=== PATIENT | male | born 1965 ===

== ENCOUNTER 2016-08-27 20:29 | Emergency (ER) | payer SELFPAY ==
[2016-08-27 20:29] VITALS: BMI 26.5
--- NOTE | 2016-08-27 21:13 | C.PDOC ---
History Of Present Illness Patient is a 51 y/o male that presents to the ED for evaluation of intermittent pain upon urination for the last week. Pt also complains of testicular and penile pain. Otherwise, denies any hematuria, urinary frequency/retention, abdominal pain, n/v/d, back pain, fever, chills, or any other associated symptoms at this time. Chief Complaint (Nursing): Male Genitourinary History Per: Patient History/Exam Limitations: no limitations Onset/Duration Of Symptoms: Days (1 week) Current Symptoms Are (Timing): Still Present Quality Of Discomfort: "Pain" Associated Symptoms: Urinary Symptoms. denies: Fever, Chills, Nausea, Vomiting , Diarrhea, Loss Of Appetite, Back Pain, Chest Pain, Constipation Alleviating Factors: None Recent travel outside of the [place]: No Additional History Per: Patient Past Medical History Reviewed: Historical Data, Nursing Documentation, Vital Signs Vital Signs: Last Vital Signs Temp 98.6 F 08/27/16 20:37 Pulse 88 08/27/16 22:48 Resp 20 08/27/16 22:48 BP 148/72 08/27/16 22:48 Pulse Ox 98 08/28/16 00:45 - Medical History PMH: HTN Denies: Diabetes, Hepatitis, HIV, Chronic Kidney Disease, Seizures, Sexually Transmitted Disease Family History: States: Unknown Family Hx - Social History Hx Tobacco Use: No Hx Alcohol Use: No Hx Substance Use: No - Immunization History Hx Tetanus Toxoid Vaccination: No Hx Influenza Vaccination: No Hx Pneumococcal Vaccination: No Review Of Systems Except As Marked, All Systems Reviewed And Found Negative. Constitutional: Negative for: Fever, Chills Gastrointestinal: Negative for: Nausea, Vomiting, Abdominal Pain, Diarrhea, Constipation Genitourinary: Positive for: Dysuria (pain on urination), Other (testicular pain ). Negative for: Frequency, Incontinence, Hematuria, Penile Discharge, Rash, Penile Pain Musculoskeletal: Negative for: Back Pain Physical Exam - Physical Exam Appears: Non-toxic, No Acute Distress Skin: Normal Color, Warm, Dry Head: Atraumatic, Normacephalic Eye(s): bilateral: Normal Inspection Neck: Normal ROM, Supple Chest: Symmetrical, No Tenderness Cardiovascular: Rhythm Regular, No Murmur Respiratory: Normal Breath Sounds, No Rales, No Rhonchi, No Wheezing Gastrointestinal/Abdominal: Soft, No Tenderness, No Guarding, No Rebound Male Genital: Normal Inspection, No Testicular Tenderness, No Testicular Swelling, No Inguinal Tenderness, No Inguinal Swelling, No Scrotal Swelling, No Other (no penile discharge, no swelling) Extremity: Normal ROM Extremity: Bilateral: Atraumatic Neurological/Psych: Oriented x3, Normal Speech, Normal Cognition ED Course And Treatment - Laboratory Results Result Diagrams: 08/27/16 21:24 08/27/16 21:24 O2 Sat by Pulse Oximetry: 98 (on RA) Pulse Ox Interpretation: Normal Progress Note: Blood work, urinalysis ordered and reviewed. Disposition Counseled Patient/Family Regarding: Diagnosis - Disposition Referrals: at [facility] [Outside] Disposition: HOME/ ROUTINE Disposition Time: 00:47 Condition: STABLE Prescriptions: Doxycycline Monohydrate 100 mg PO BID #20 tablet Naproxen [Naprosyn Tab] 375 mg PO TIDPC #20 tab Instructions: Nonspecific Urethritis in Men (ED) - POA Present On Arrival: None - Clinical Impression Clinical Impression: Urethritis, nonspecific - Scribe Statement The provider has reviewed the documentation as recorded by the Daniellaibrichard Kaminski All medical record entries made by the Daniellaibrichard were at my direction and personally dictated by me. I have reviewed the chart and agree that the record accurately reflects my personal performance of the history, physical exam, medical decision making, and the department course for this patient. I have also personally directed, reviewed, and agree with the discharge instructions and disposition.
[2016-08-27 21:33] LABS: BASO % 0.6 % (0.0-2.0); EOS # 0.2 K/uL (0.0-0.7); EOS % 3.6 % (0.0-4.0); HEMOGLOBIN 13.9 g/dL (12.0-18.0); LYMPH # 1.9 K/uL (1.0-4.3); LYMPH % 29.9 % (20.0-40.0); MEAN CELL VOLUME 84.2 fL (80.0-94.0); MEAN CORPUSCULAR HEMOGLOBIN 27.3 pg (27.0-31.0); MEAN CORPUSCULAR HGB CONC 32.5 g/dL (33.0-37.0); MEAN PLATELET VOLUME 9.1 fL (7.2-11.7); MONO # 0.6 K/uL (0.0-0.8); MONO % 9.7 % (0.0-10.0); NEUT # 3.5 K/uL (1.8-7.0); NEUT % 56.2 % (50.0-75.0); RBC 5.1 Mil/uL (4.40-5.90); RED CELL DISTRIBUTION WIDTH 13.4 % (11.5-14.5); WHITE BLOOD COUNT 6.3 K/uL (4.8-10.8)
[2016-08-27 21:43] LABS: ALB/GLOB RATIO 1.3 (1.0-2.1); ALT/SGPT 42 U/L (21-72); AST/SGOT 25 U/L (17-59); BLOOD UREA NITROGEN 26 mg/dL (9-20); CALCIUM 9.1 mg/dl (8.6-10.4); GFR AFRICAN-AMERICAN > 60; GFR NON-AFRICAN AMERICAN > 60
[2016-08-27] MEDS ORDERED: Sodium Chloride 0.9% 1,000 ML IV ONE (22:36)
[2016-08-27 23:02] LABS: URINE BACTERIA RARE (<OCC); URINE BILIRUBIN NEGATIVE (NEGATIVE); URINE BLOOD NEGATIVE (NEGATIVE); URINE CLARITY Clear (Clear); URINE COLOR Yellow (YELLOW); URINE GLUCOSE (UA) NORMAL (Normal); URINE LEUKOCYTE ESTERASE NEG Leu/uL (Negative); URINE NITRATE NEGATIVE (NEGATIVE); URINE PROTEIN NEGATIVE (NEGATIVE); URINE UROBILINOGEN NORMAL mg/dL (0.2-1.0)
[2016-08-28 01:35] VITALS: BP 132/76; PULSE 64; RESP 18; TEMP 98.1; O2SAT 99
== END 2016-08-28 01:33 | disposition home or self-care (01) ==
LOC: C.ER 20:29
DX: N34.1 Nonspecific urethritis (principal)
CPT/HCPCS: 80053; 81001; 85025; 87086; 99285; J7040

== ENCOUNTER 2016-10-14 15:41 | Emergency (ER) | payer OTHER ==
[2016-10-14 15:41] VITALS: BMI 26.5
[2016-10-14 15:47] VITALS: RESP 18
--- NOTE | 2016-10-14 16:14 | C.PDOC ---
History Of Present Illness 51 y/o male with Hx of HTN presents to ED sent from urgent center for elevated blood pressure. Patient states at urgent center blood pressure was high and was told to follow up with PMD but patient reports he does not have a PMD and came to ED for further evaluation. Patient admits to not being compliant with medications. Patient denies, headache, sob, chest pain, abdominal pain, nausea, vomiting, blurry or double vision. No other complaints at this time. Time Seen by Provider: 10/14/16 16:12 Chief Complaint (Nursing): High Blood Pressure History Per: Patient History/Exam Limitations: no limitations Onset/Duration Of Symptoms: Hrs Current Symptoms Are (Timing): Still Present Quality Of Symptoms: Asymptomatic Past Medical History Reviewed: Historical Data, Nursing Documentation, Vital Signs Vital Signs: Last Vital Signs Temp 98.7 F 10/14/16 17:19 Pulse 62 10/14/16 17:19 Resp 18 10/14/16 17:19 BP 156/90 H 10/14/16 17:19 Pulse Ox 98 10/14/16 18:20 - Medical History PMH: HTN Family History: States: No Known Family Hx - Social History Hx Tobacco Use: No Hx Alcohol Use: No Hx Substance Use: No - Immunization History Hx Tetanus Toxoid Vaccination: No Hx Influenza Vaccination: No Hx Pneumococcal Vaccination: No Review Of Systems Except As Marked, All Systems Reviewed And Found Negative. Constitutional: Negative for: Fever, Chills Eyes: Negative for: Vision Change Cardiovascular: Negative for: Chest Pain Respiratory: Negative for: Shortness of Breath Gastrointestinal: Negative for: Nausea, Vomiting, Abdominal Pain Skin: Negative for: Rash Physical Exam - Physical Exam Appears: Well, Non-toxic, No Acute Distress Skin: Normal Color, Warm, Dry, No Rash Head: Atraumatic, Normacephalic Eye(s): bilateral: Normal Inspection Oral Mucosa: Moist Neck: Normal ROM, Supple Chest: Symmetrical Cardiovascular: Rhythm Regular, No Murmur Respiratory: Normal Breath Sounds, No Rales, No Rhonchi, No Wheezing Gastrointestinal/Abdominal: Soft, No Tenderness, No Guarding, No Rebound Neurological/Psych: Oriented x3, Normal Speech ED Course And Treatment O2 Sat by Pulse Oximetry: 98 (RA) Pulse Ox Interpretation: Normal Medical Decision Making Medical Decision Making: Patient was explained he needs to follow with a primary care physician and was discharged home with information on Senior Budget Analyst assistant construction superintendent and Clinic. Disposition - Disposition Referrals: [facility] [Outside] [facility] [Outside] Cole Jimenez MD [Staff Provider] - Disposition: HOME/ ROUTINE Disposition Time: 17:00 Condition: GOOD Additional Instructions: Thank you for letting us take care of you today. Your provider was Dr. Hughes. The emergency medical care you received today was directed at your acute symptoms. If you were prescribed any medication, please fill it and take as directed. It may take several days for your symptoms to resolve. Return to the Emergency Department if your symptoms worsen, do not improve, or if you have any other problems. Please contact your doctor or call one of the physicians/clinics you have been referred to that are listed on the Patient Visit Information form that is included in your discharge packet. Bring any paperwork you were given at discharge with you along with any medications you are taking to your follow up visit. Our treatment cannot replace ongoing medical care by a primary care provider (PCP) outside of the emergency department. Thank you for allowing the [facility] team to be part of your care today. Follow up with Dr. Faisal Hunter or out clinic in 1-2 days for re-evaluation of your blood pressure and further management. Prescriptions: Hydrochlorothiazide [Microzide] 12.5 mg PO DAILY #7 cap Instructions: Hypertension (ED) Forms: [employer] (Bruneian) - Clinical Impression Clinical Impression: Hypertension - PA / MINERAL ECONOMIST / Resident Statement MD/DO has examined the patient and agrees with the treatment plan. - Scribe Statement The provider has reviewed the documentation as recorded by the Trevon Montes De Oca All medical record entries made by the Daniellaibrichard were at my direction and personally dictated by me. I have reviewed the chart and agree that the record accurately reflects my personal performance of the history, physical exam, medical decision making, and the department course for this patient. I have also personally directed, reviewed, and agree with the discharge instructions and disposition.
[2016-10-14 17:23] VITALS: BP 156/90; PULSE 62; TEMP 98.7
[2016-10-14 18:18] VITALS: O2SAT 98
== END 2016-10-14 17:20 | disposition home or self-care (01) ==
LOC: C.ER 15:41
DX: I10 Essential (primary) hypertension (principal)

== ENCOUNTER 2017-01-09 15:57 | Emergency (ER) | payer SELFPAY ==
[2017-01-09 16:05] VITALS: BMI 23.6
[2017-01-09 16:08] VITALS: PULSE 67; RESP 18; TEMP 97.8
[2017-01-09 18:35] LABS: BASO % 0.6 % (0.0-2.0); EOS # 0.2 K/uL (0.0-0.7); EOS % 3.1 % (0.0-4.0); HEMATOCRIT 44.4 % (35.0-51.0); LYMPH # 1.8 K/uL (1.0-4.3); LYMPH % 32.4 % (20.0-40.0); MEAN CELL VOLUME 85.6 fL (80.0-94.0); MEAN CORPUSCULAR HEMOGLOBIN 27.7 pg (27.0-31.0); MEAN CORPUSCULAR HGB CONC 32.4 g/dL (33.0-37.0); MEAN PLATELET VOLUME 9.6 fL (7.2-11.7); MONO # 0.7 K/uL (0.0-0.8); MONO % 12.5 % (0.0-10.0); NRBC % 0.2 % (0.0-2.0); RED CELL DISTRIBUTION WIDTH 14.1 % (11.5-14.5); WHITE BLOOD COUNT 5.6 K/uL (4.8-10.8)
[2017-01-09 18:46] LABS: ALB/GLOB RATIO 1.6 (1.0-2.1); ALKALINE PHOSPHATASE 49 U/L (38-126); ALT/SGPT 51 U/L (21-72); AST/SGOT 30 U/L (17-59); BILIRUBIN,TOTAL 0.9 mg/dL (0.2-1.3); BLOOD UREA NITROGEN 15 mg/dL (9-20); CALCIUM 8.1 mg/dl (8.6-10.4); CARBON DIOXIDE 27 mmol/L (22-30); CHLORIDE 98 mmol/L (98-107); GFR AFRICAN-AMERICAN > 60; GLUCOSE,RANDOM 69 mg/dL (75-110); POTASSIUM 3.7 mmol/L (3.6-5.2); SODIUM 134 mmol/L (132-148)
[2017-01-09 18:56] VITALS: BP 161/97; O2SAT 99
--- NOTE | 2017-01-09 19:24 | C.PDOC ---
History Of Present Illness 51 y/o male presents to the ED c/o digitally and positionally left chest discomfort. The patient also notes that "he ran out of hypertension medication many months ago". The patient denies fever, headaches, dizziness, shortness of breathe, and cough. Time Seen by Provider: 01/09/17 18:18 Chief Complaint (Nursing): Chest Pain History Per: Patient History/Exam Limitations: no limitations Onset/Duration Of Symptoms: Hrs Current Symptoms Are (Timing): Still Present Recent travel outside of the [place]: No Additional History Per: Patient Past Medical History Reviewed: Historical Data, Nursing Documentation, Vital Signs Vital Signs: Last Vital Signs Temp 97.8 F 01/09/17 16:07 Pulse 67 01/09/17 18:55 Resp 18 01/09/17 18:55 BP 161/97 H 01/09/17 18:55 Pulse Ox 99 01/09/17 20:15 - Medical History PMH: HTN Denies: Diabetes, Hepatitis, HIV, Chronic Kidney Disease, Seizures, Sexually Transmitted Disease Surgical History: No Surg Hx Family History: States: No Known Family Hx - Social History Hx Tobacco Use: No Hx Alcohol Use: No Hx Substance Use: No - Immunization History Hx Tetanus Toxoid Vaccination: No Hx Influenza Vaccination: No Hx Pneumococcal Vaccination: No Review Of Systems Except As Marked, All Systems Reviewed And Found Negative. Constitutional: Negative for: Fever, Chills Cardiovascular: Positive for: Chest Pain (left discomfort ) Respiratory: Negative for: Cough, Shortness of Breath Gastrointestinal: Negative for: Nausea, Vomiting Skin: Negative for: Rash, Bruising Physical Exam - Physical Exam Appears: Non-toxic, No Acute Distress Skin: Warm, Dry Head: Normacephalic Eye(s): bilateral: Normal Inspection Oral Mucosa: Moist Neck: Supple Chest: Other (physically positionly reproducible ,left laterally rib discomfort , and no rash) Cardiovascular: Rhythm Regular Respiratory: Normal Breath Sounds, No Decreased Breath Sounds, No Rales, No Rhonchi, No Wheezing Gastrointestinal/Abdominal: Soft, No Tenderness, No Guarding, No Rebound Extremity: Capillary Refill (2<sec.) Neurological/Psych: Oriented x3, Normal Speech, Normal Cognition Gait: Steady ED Course And Treatment - Laboratory Results Result Diagrams: 01/09/17 18:31 01/09/17 18:31 Lab Interpretation: Normal (trop neg.) ECG: Interpreted By Me ECG Rhythm: Sinus Rhythm, Nonspecific Changes (+LVH) ECG Interpretation: Normal Rate From EC O2 Sat by Pulse Oximetry: 99 (RA) - Radiology CXR: Interpreted by Me CXR Interpretation: Yes: No Acute Disease Progress Note: vasotec PO, Motrin PO Reevaluation Time: 19:23 Reassessment Condition: Improved Medical Decision Making Medical Decision Making: uncontrolled HTN off meds due to non-compliance (HCTZ 12.5) considering LVH on EKG, start ACEI and f/u in outpatient Clinic. Disposition Doctor Will See Patient In The: Office Counseled Patient/Family Regarding: Studies Performed, Diagnosis - Disposition Referrals: [facility] [Outside] [facility] Disposition: HOME/ ROUTINE Disposition Time: 19:24 Condition: GOOD Additional Instructions: sigue Vasotec 40 mg diario por andrea pression natalia. NUNCA debes faltar maryjo medicamentos- Sigue en la [facility]- para rellener maryjo medicamentos ailin necessario. [place] NO son cardiologico Sigue Ibuprofeno 400-600 mg cada 6 horas ailin necessario. Prescriptions: Enalapril Maleate [Vasotec] 40 mg PO DAILY #60 tab Instructions: Hypertension (ED) Forms: [employer] (Mexican) Print Language: ICELANDIC - Clinical Impression Clinical Impression: Chest discomfort, Hypertension - Scribe Statement The provider has reviewed the documentation as recorded by the Scribe Marisela Guaman All medical record entries made by the Scribe were at my direction and personally dictated by me. I have reviewed the chart and agree that the record accurately reflects my personal performance of the history, physical exam, medical decision making, and the department course for this patient. I have also personally directed, reviewed, and agree with the discharge instructions and disposition.
--- NOTE | 2017-01-10 12:02 | RAD ---
PROCEDURE: CHEST RADIOGRAPH, 1 VIEW HISTORY: SOB COMPARISON: Comparison chest 05/01/2015 FINDINGS: LUNGS: Biapical pleural thickening and adjacent apical parenchymal scarring PLEURA: As above. No evidence of pneumothorax CARDIOVASCULAR: Cardiomegaly. OSSEOUS STRUCTURES: No significant abnormalities. VISUALIZED UPPER ABDOMEN: Normal. OTHER FINDINGS: None. IMPRESSION: Biapical pleural thickening and adjacent apical parenchymal scarring within the
--- NOTE | 2017-01-12 09:03 | CARD ---
APPROVED REPORT EKG Measurement Heart [id number] OK 152P1 [id number] <Conclusion> Normal sinus rhythm Possible Left atrial enlargement Left ventricular hypertrophy Abnormal ECG
== END 2017-01-09 19:51 | disposition home or self-care (01) ==
LOC: C.ER 15:57
DX: R07.89 Other chest pain (principal); I10 Essential (primary) hypertension; Z91.14 Patient's other noncompliance with medication regimen

== ENCOUNTER 2017-03-28 19:00 | Emergency (ER) | payer SELFPAY ==
[2017-03-28 19:00] VITALS: BMI 23.6
[2017-03-28 19:06] VITALS: RESP 20; TEMP 98
--- NOTE | 2017-03-28 20:12 | C.PDOC ---
History Of Present Illness 52 year old male presents to the ED c/o low back pain after lifting a heavy water tank at work. Patient describes his pain as dull and achy mostly located in his lumbar region. Patient also noted to be hypertensive and patient states he has been non compliant with his medications. Patient denies saddle anesthesia , bowel or urine incontinence, visual changes, headache, dizziness, weakness, numbness. Time Seen by Provider: 03/28/17 20:11 Chief Complaint (Nursing): Back Pain History Per: Patient History/Exam Limitations: no limitations Onset/Duration Of Symptoms: Days Current Symptoms Are (Timing): Still Present Quality Of Discomfort: Dull, Aching Severity: Mild Pain Scale Rating Of: 2 Previous Symptoms: Back Pain Associated Symptoms: None Exacerbating Factor(s): Turning, Movement Recent travel outside of the [place]: No Additional History Per: Patient Past Medical History Reviewed: Historical Data, Nursing Documentation, Vital Signs Vital Signs: Last Vital Signs Temp 98.0 F 03/28/17 19:03 Pulse 49 L 03/28/17 23:05 Resp 20 03/28/17 22:20 BP 146/96 H 03/28/17 23:05 Pulse Ox 98 03/28/17 23:13 - Medical History PMH: HTN Denies: Diabetes, Hepatitis, HIV, Chronic Kidney Disease, Seizures, Sexually Transmitted Disease Surgical History: No Surg Hx Family History: States: No Known Family Hx - Social History Hx Tobacco Use: No Hx Alcohol Use: No Hx Substance Use: No - Immunization History Hx Tetanus Toxoid Vaccination: No Hx Influenza Vaccination: No Hx Pneumococcal Vaccination: No Review Of Systems Constitutional: Negative for: Fever, Chills Cardiovascular: Negative for: Chest Pain, Palpitations Respiratory: Negative for: Cough, Shortness of Breath Gastrointestinal: Negative for: Nausea, Vomiting, Abdominal Pain Genitourinary: Negative for: Incontinence Musculoskeletal: Positive for: Back Pain Skin: Negative for: Rash Neurological: Negative for: Weakness, Numbness, Headache, Dizziness Psych: Negative for: Anxiety Physical Exam - Physical Exam Appears: Non-toxic, No Acute Distress Skin: Warm, Dry Head: Normacephalic Eye(s): bilateral: Normal Inspection Nose: No Discharge, No Deformity Oral Mucosa: Moist Neck: Trachea Midline, Supple Chest: Symmetrical Cardiovascular: Rhythm Regular, No Murmur Respiratory: No Decreased Breath Sounds, No Rales, No Rhonchi, No Wheezing Gastrointestinal/Abdominal: Soft, No Tenderness, No Guarding, No Rebound Back: Normal Inspection, Straight Leg Raising (35 degrees), Other (Paralumbar tenderness L>R) Extremity: No Pedal Edema, No Calf Tenderness, No Swelling Extremity: Bilateral: Atraumatic Pulses: Left Dorsalis Pedis: Normal, Right Dorsalis Pedis: Normal Neurological/Psych: Oriented x3, Normal Motor, Normal Sensation Gait: Steady ED Course And Treatment - Laboratory Results Result Diagrams: 03/28/17 20:39 03/28/17 20:39 ECG: Interpreted By Me, Viewed By Me ECG Rhythm: Sinus Rhythm (59), Nonspecific Changes O2 Sat by Pulse Oximetry: 98 (On RA) Pulse Ox Interpretation: Normal Progress Note: Plan: -Labs. -EKG. -UA Reevaluation Time: 23:12 Reassessment Condition: Improved Medical Decision Making Medical Decision Making: Upon provider reevaluation patient is feeling better, is medically stable, and requires no further treatment in the ED at this time. Patient will be discharged home . Counseling was provided and all questions were answered regarding diagnosis and need for follow up with the referred clinic. There is agreement to discharge plan. Return if symptoms persist or worsen. Disposition Counseled Patient/Family Regarding: Studies Performed, Diagnosis, Need For Followup, Rx Given - Disposition Referrals: [facility] [Outside] [facility] [Outside] Disposition: HOME/ ROUTINE Disposition Time: 20:12 Condition: FAIR Additional Instructions: Please return if symptoms recur Prescriptions: Naproxen [Naprosyn] 1 tab PO BID PRN #25 tab PRN Reason: Pain Instructions: Hypertension (DC), Back Pain (ED), Back Exercises (ED) Forms: [employer] (Latvian) - Clinical Impression Clinical Impression: Low back strain, Hypertension - Scribe Statement The provider has reviewed the documentation as recorded by the Scribe Dylon Castro All medical record entries made by the Scribe were at my direction and personally dictated by me. I have reviewed the chart and agree that the record accurately reflects my personal performance of the history, physical exam, medical decision making, and the department course for this patient. I have also personally directed, reviewed, and agree with the discharge instructions and disposition.
[2017-03-28 20:42] LABS: BASO # 0.1 K/uL (0.0-0.2); BASO % 0.8 % (0.0-2.0); EOS # 0.1 K/uL (0.0-0.7); EOS % 1.9 % (0.0-4.0); HEMOGLOBIN 14.5 g/dL (12.0-18.0); LYMPH # 1.7 K/uL (1.0-4.3); MEAN CELL VOLUME 84.8 fL (80.0-94.0); MEAN CORPUSCULAR HEMOGLOBIN 28.4 pg (27.0-31.0); MEAN CORPUSCULAR HGB CONC 33.5 g/dL (33.0-37.0); MEAN PLATELET VOLUME 8.8 fL (7.2-11.7); MONO # 0.5 K/uL (0.0-0.8); NEUT # 3.7 K/uL (1.8-7.0); NEUT % 61.3 % (50.0-75.0); NRBC % 0.2 % (0.0-2.0); RBC 5.09 Mil/uL (4.40-5.90); RED CELL DISTRIBUTION WIDTH 13.8 % (11.5-14.5)
[2017-03-28 20:51] LABS: INR 1.2; PROTHROMBIN TIME 13.4 SECONDS (9.7-12.2)
[2017-03-28 20:57] LABS: ALB/GLOB RATIO 1.2 (1.0-2.1); ALBUMIN 4.2 g/dL (3.5-5.0); ALT/SGPT 43 U/L (21-72); AST/SGOT 28 U/L (17-59); BLOOD UREA NITROGEN 12 mg/dL (9-20); CALCIUM 8.7 mg/dl (8.6-10.4); GFR AFRICAN-AMERICAN > 60; GFR NON-AFRICAN AMERICAN > 60
[2017-03-28 21:22] LABS: URINE BILIRUBIN NEGATIVE (NEGATIVE); URINE BLOOD NEGATIVE (NEGATIVE); URINE CLARITY Clear (Clear); URINE COLOR Colorless (YELLOW); URINE GLUCOSE (UA) NORMAL (Normal); URINE LEUKOCYTE ESTERASE NEG Leu/uL (Negative); URINE NITRATE NEGATIVE (NEGATIVE); URINE PROTEIN NEGATIVE (NEGATIVE); URINE UROBILINOGEN NORMAL mg/dL (0.2-1.0)
[2017-03-28 22:20] VITALS: O2SAT 98
[2017-03-28] MEDS ORDERED: Enalaprilat 2.5 MG/2 ML IV ONE (22:27)
[2017-03-28] MEDS ORDERED: Enalaprilat 2.5 MG/2 ML ONE (22:29)
[2017-03-28 23:07] VITALS: BP 146/96; PULSE 49
--- NOTE | 2017-03-30 14:38 | CARD ---
APPROVED REPORT EKG Measurement Heart [id number] IN 164P5 [id number] <Conclusion> Sinus bradycardia Possible Left atrial enlargement Left ventricular hypertrophy Nonspecific T wave abnormality Abnormal ECG
== END 2017-03-28 23:30 | disposition home or self-care (01) ==
LOC: C.ER 19:00
DX: S39.012A Strain of muscle, fascia and tendon of lower back, initial encounter (principal); X50.0XXA Overexertion from strenuous movement or load, initial encounter; Y92.89 Other specified places as the place of occurrence of the external cause; Y99.0 Civilian activity done for income or pay; I10 Essential (primary) hypertension
CPT/HCPCS: 80053; 81001; 84484; 85025; 85610; 85730; 93005; 96374; 96375; 99284; J1885

== ENCOUNTER 2017-04-13 16:36 | Inpatient (IN) | payer OTHER ==
[2017-04-13 16:36] VITALS: BMI 23.6
--- NOTE | 2017-04-13 19:43 | C.PDOC ---
History Of Present Illness 52 year old patient presents to the emergency department with complaints of pain in his back and chest described as pressure, "stabbing and cutting from the inside". Patient reports that he was evaluated by a psychiatrist and was told to be surrounded by family; he has not followed up with the psychiatrist. Patient denies anxiety, depression, suicidal or homicidal ideation. He states that he also has trouble sleeping, due to the fact that he hears voices of the "devil speaking to him." Patient feels that the "devil is causing his symptoms. 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) History/Exam Limitations: language barrier (patient speaks latvian) Onset/Duration Of Symptoms: Waxing/Waning, Other (years) Current Symptoms Are (Timing): Still Present Associated Symptoms: denies: Anxiety, Depression, Suicidal Thoughts, Other ( homicidal ideation) Past Medical History Reviewed: Historical Data, Nursing Documentation, Vital Signs Vital Signs: Last Vital Signs Temp 98.7 F 04/13/17 16:55 Pulse 67 04/13/17 16:55 Resp 16 04/13/17 16:55 BP 207/117 H 04/13/17 16:55 Pulse Ox 97 04/13/17 21:44 - Medical History PMH: HTN Denies: Anxiety, Depression, Diabetes, Hepatitis, HIV, Chronic Kidney Disease , Seizures, Sexually Transmitted Disease Surgical History: No Surg Hx Family History: States: No Known Family Hx - Social History Hx Tobacco Use: No Hx Alcohol Use: No Hx Substance Use: No - Immunization History Hx Tetanus Toxoid Vaccination: No Hx Influenza Vaccination: No Hx Pneumococcal Vaccination: No Review Of Systems Except As Marked, All Systems Reviewed And Found Negative. Cardiovascular: Positive for: Chest Pain (described pressure and stabbing) Musculoskeletal: Positive for: Back Pain Psych: Positive for: Other (auditory and visual hallucination). Negative for: Anxiety, Depression, Suicidal ideation Physical Exam - Physical Exam Appears: Non-toxic Skin: Normal Color, Warm, Dry Head: Normacephalic Eye(s): bilateral: Normal Inspection Nose: Normal Neck: Supple Chest: Symmetrical Cardiovascular: Rhythm Regular Respiratory: Normal Breath Sounds Gastrointestinal/Abdominal: Normal Exam, Soft, No Tenderness Extremity: Normal ROM Neurological/Psych: Oriented x3, Normal Speech, Normal Cognition ED Course And Treatment - Laboratory Results Result Diagrams: 04/13/17 20:57 04/13/17 20:57 ECG: Interpreted By Me ECG Rhythm: Sinus Bradycardia ECG Interpretation: Normal Interpretation Of ECG: sinus roman,LVH by voltage Rate From EC O2 Sat by Pulse Oximetry: 97 (RA) Pulse Ox Interpretation: Normal Medical Decision Making Medical Decision Making: Plan: * EKG * Labs * Urinalysis * CXR Time: 2143 Labs reviewed and within normal limits. Time: 2355 EXAM: CT Head Without Intravenous Contrast CLINICAL HISTORY: 52 years old, male; Pain; Headache; Patient HX: 12-24-15; Additional info: Acute psychosis TECHNIQUE: Axial computed tomography images of the head/brain without intravenous contrast. All CT scans at this facility use one or more dose reduction techniques, viz.: automated exposure control; ma/kV adjustment per patient size (including targeted exams where dose is matched to indication; i.e. head); or iterative reconstruction technique. COMPARISON: CT - HEAD W/O CONTRAST 2015-05-01 03:05 FINDINGS: Brain: No intracranial hemorrhage. No mass. Few scattered foci of decreased attenuation within periventricular/subcortical white matter. No definite edema. Ventricles: No hydrocephalus. Bones/joints: No acute fracture. Soft tissues: Unremarkable. Sinuses: No acute sinusitis. Mastoid air cells: No mastoid effusion. Orbits: Unremarkable as visualized. IMPRESSION: 1. Nonspecific white matter changes. Acute infarction may be CT occult within first 24 hours. If a focal deficit persists, consider followup CT or MRI for further evaluation. Disposition - Disposition Forms: [employer] (Spanish) - Scribe Statement The provider has reviewed the documentation as recorded by the Scribe (Sahil Amaya) All medical record entries made by the Scribe were at my direction and personally dictated by me. I have reviewed the chart and agree that the record accurately reflects my personal performance of the history, physical exam, medical decision making, and the department course for this patient. I have also personally directed, reviewed, and agree with the discharge instructions and disposition.
[2017-04-13 21:00] LABS: BASO % 0.7 % (0.0-2.0); EOS # 0.2 K/uL (0.0-0.7); EOS % 2.9 % (0.0-4.0); HEMOGLOBIN 14.7 g/dL (12.0-18.0); LYMPH # 1.8 K/uL (1.0-4.3); LYMPH % 28.3 % (20.0-40.0); MEAN CELL VOLUME 85.2 fL (80.0-94.0); MEAN CORPUSCULAR HEMOGLOBIN 28.7 pg (27.0-31.0); MEAN CORPUSCULAR HGB CONC 33.7 g/dL (33.0-37.0); MEAN PLATELET VOLUME 8.9 fL (7.2-11.7); MONO # 0.7 K/uL (0.0-0.8); MONO % 10.9 % (0.0-10.0); NEUT # 3.6 K/uL (1.8-7.0); NEUT % 57.2 % (50.0-75.0); NRBC % 0.1 % (0.0-2.0); RBC 5.12 Mil/uL (4.40-5.90); RED CELL DISTRIBUTION WIDTH 13.9 % (11.5-14.5); WHITE BLOOD COUNT 6.3 K/uL (4.8-10.8)
[2017-04-13 21:06] LABS: SQUAMOUS EPITHIAL < 1 /hpf (0-5); URINE BACTERIA RARE (<OCC); URINE BILIRUBIN NEGATIVE (NEGATIVE); URINE BLOOD NEGATIVE (NEGATIVE); URINE CLARITY Clear (Clear); URINE COLOR Yellow (YELLOW); URINE GLUCOSE (UA) NORMAL (Normal); URINE LEUKOCYTE ESTERASE NEG Leu/uL (Negative); URINE NITRATE NEGATIVE (NEGATIVE); URINE PROTEIN NEGATIVE (NEGATIVE); URINE UROBILINOGEN NORMAL mg/dL (0.2-1.0)
[2017-04-13 21:13] LABS: ALB/GLOB RATIO 1.3 (1.0-2.1); ALBUMIN 4.3 g/dL (3.5-5.0); ALT/SGPT 43 U/L (21-72); AST/SGOT 24 U/L (17-59); BLOOD UREA NITROGEN 14 mg/dL (9-20); CALCIUM 8.7 mg/dl (8.6-10.4); GFR AFRICAN-AMERICAN > 60; GFR NON-AFRICAN AMERICAN > 60
[2017-04-13 21:17] LABS: BARBITURATES, UR NEGATIVE (NEGATIVE); BENZODIAZEPINES, UR NEGATIVE (NEGATIVE); OPIATES, UR NEGATIVE (NEGATIVE); PHENCYCLIDINE, UR NEGATIVE (NEGATIVE)
--- NOTE | 2017-04-13 23:56 | CT ---
EXAM: CT Head Without Intravenous Contrast CLINICAL HISTORY: 52 years old, male; Pain; Headache; Patient HX: 12-24-15; Additional info: Acute psychosis TECHNIQUE: Axial computed tomography images of the head/brain without intravenous contrast. All CT scans at this facility use one or more dose reduction techniques, viz.: automated exposure control; ma/kV adjustment per patient size (including targeted exams where dose is matched to indication; i.e. head); or iterative reconstruction technique. COMPARISON: CT - HEAD W/O CONTRAST 2015-05-01 03:05 FINDINGS: Brain: No intracranial hemorrhage. No mass. Few scattered foci of decreased attenuation within periventricular/subcortical white matter. No definite edema. Ventricles: No hydrocephalus. Bones/joints: No acute fracture. Soft tissues: Unremarkable. Sinuses: No acute sinusitis. Mastoid air cells: No mastoid effusion. Orbits: Unremarkable as visualized. IMPRESSION: 1. Nonspecific white matter changes. Acute infarction may be CT occult within first 24 hours. If a focal deficit persists, consider followup CT or MRI for further evaluation.
--- NOTE | 2017-04-14 09:04 | RAD ---
PROCEDURE: CHEST RADIOGRAPH, 1 VIEW HISTORY: Detox/Psy COMPARISON: 01/09/2017. FINDINGS: LUNGS: The lungs are well inflated and clear. PLEURA: No pneumothorax or pleural fluid seen. CARDIOVASCULAR: Normal. OSSEOUS STRUCTURES: No significant abnormalities. VISUALIZED UPPER ABDOMEN: Normal. OTHER FINDINGS: None. IMPRESSION: No active pulmonary disease.
--- NOTE | 2017-04-14 11:26 | PCM.BM ---
<Kika Martin - Last Filed: 04/14/17 11:22> Treatment Plan Problems - Problems identified on initial assessmt Auditory Hallucination Date Initiated: 04/14/17 Time Initiated: 11:22 Assessment reference: NA Status: Active Psychosis Date Initiated: 04/14/17 Time Initiated: 11:22 Assessment reference: NA Status: Active Treatment assets and liabiliti Patient Assests: adapts well, cooperative, resourceful, self-reliant, ADL independent, negotiates basic needs, cognitively intact Patient Liabilities: live alone (Lives with evangelical friend), financial problems, poor support system, substance abuse (None), medical problems (HTN) - Milieu Protocol Maintain good personal hygiene: daily Encourage regular showers, daily Remind patient to perform daily oral care, daily Assist patient to perform ADL's (Self) Conduct patient checks and document Observation sheet: Q15 minutes (Safety) Maintain personal safety: every shift Educate patient to report safety concerns to staff, every shift Monitor environment for contraband/sharps Medication safety: Monitor for expected outcome, potential side effects: every shift, Assess barriers to learning: every shift, Assess readiness for medication education: every shift <Harriet Day - Last Filed: 04/15/17 10:40> - Diagnosis (1) Schizophrenia, paranoid, chronic Status: Acute Interventions: 04/15/17 10:40 * Assess/adjust medications daily and /or as needed * See patient on an individual basis 7x/week to assess status of hallucinations * Discuss risks, benefits, side effects and alternatives of medications * <Cassidy Alexander - Last Filed: 04/15/17 10:45> Family Contact Family involvement: Family/SO is involved Family contact: Patient agrees to contact Family contact name: Janine Martin-daughter Family contacted how many times per week?: 1 - Goals for Treatment Patient goals for treatment: "I want to continue seeing a psychiatrist." Discharge/Continuing Care - Education Needs Education Needs: Patient Medication, Patient Coping Skills - Discharge Discharge Criteria: Tolerates medication w/o severe side effects, Reduction of target symptoms Discharge to:: Home - Treatment Team Participation Discussed with Family/SO: No Was Patient/Family/SO present at Treatment Team Meeting: Yes
--- NOTE | 2017-04-14 12:29 | PCM.PSYCH ---
Initial Psychiatric Evaluation - Initial Psychiatric Evaluation Type of Admission: Voluntary Legal Status: Capacity Chief Complaint (in patient's own words): I was hearing voices to kill myself.' History of Present Illness and Precipitating Events: The patient is a 52 y/o HM, who presented to ED for auditory and visual hallucinations. Patient appeared disorganized and internally preoccupied during the interview. He appeared paranoid and delusional during the interview. He reports of hearing demons' voices telling him to go to hell and that they are enemies of Bobby. As per the ED report, pt reported that he is being physically attacked by the voices. The patient is a [employer] of [employer] francia and attributes the voices as a part of his christianity francia. The patient has been hearing voices for the past 5 years, but the past year the voices have increasingly gotten worse. The patient has no previous psychiatric treatment or hospitalizations. The patient has no history of drug or alcohol abuse. Patient reports depressed mood and feelings of hopelessness and helplessness. Patient remained isolated, confined and withdrawn. He remained paranoid and delusional. PMH: HTN Current Medications: Active Medications Generic Name Dose Route Start Last Admin Trade Name Freq PRN Reason Stop Dose Admin Clonidine HCl 0.1 mg 04/14/17 11:37 04/14/17 12:05 Catapres PO 0.1 mg Q6 PRN Administration Other Pneumococcal Polyvalent Vaccine 0.5 ml 04/17/17 10:00 Pneumovax 23 Vaccine IM 04/17/17 10:01 .ONCE ONE Past Psychiatric History - Past Psychiatric History Previous Treatment History: None Pertinent Medical Hx (Current Medical&Sleep Prob, Allergies): Allergies Allergy/AdvReac Type Severity Reaction Status Date / Time No Known Allergies Allergy Verified 04/13/17 17:00 Naproxen [Naprosyn] 1 tab PO BID PRN #25 tab 03/28/17 Review of Systems - Review of Systems All systems: reviewed and no additional remarkable complaints except - Psychiatric Psychiatric: Anxiety, Auditory Hallucinations, Panic Attacks, Paranoia, Visual Hallucinations Mental Status Examination - Personal Presentation Personal Presentation: Looks stated age - Affect Affect: Constricted, Depressed - Motor Activity Motor Activity: Psychomotor Retardation - Reliability in Providing Information Reliability in Providing Information: Poor, due to alteration in thoughts, Poor , due to altered mood - Speech Speech: Disorganized - Mood Mood: Depressed, Anxious - Formal Thought Process Formal Thought Process: Hallucinations, Delusions, Paranoia, Loosening of associations - Hallucinations/Delusions Hallucinations: Visual, Auditory Delusions: Persecution - Obsessions/Compulsions Obsessions: No Compulsions: No - Cognitive Functions Orientation: Person, Place, Situation, Time Sensorium: Alert Attention/Concentration: Attentive Abstract Thinking: [place] Estimate of Intelligence: Below average Judgement: Imparied, as evidence by: Poor judgement, Imparied, as evidence by: Lack of insight into illness - Risk Risk: Diminished functioning - Limitations Limitations: Living alone DSM 5 DX - DSM 5 DSM 5 Diagnosis: Schizophrenia paranoid type continuous R/o Schizoaffective disorder bipolar type - Recommended/Plan of Treatment Treatment Recommendations and Plan of Treatment: Schizophrenia paranoid type continuous R/o Schizoaffective disorder bipolar type -CBT -Psychoeducation -Supportive therapy, group therapy, individual therapy -Haldol 5 mg by mouth twice a day -Celexa 20 mg PO Daily -Trazodone 50 mg by mouth daily at bedtime HTN: Continue prescribed medications - Smoking Cessation Smoking Cessation Initiated: No
--- NOTE | 2017-04-14 15:32 | CP.PCM.HP ---
<Ge Mcmanus - Last Filed: 04/14/17 18:29> History of Present Illness - History of Present Illness History of Present Illness: PGY1 H+P for Dr. Montoya Consulted for Hypertensive Urgency Patient is 52 year old male with a past medical history of HTN who is currently admitted to the [facility] [place]. He was admitted yesterday because he has been hearing voices. He states he has been hearing voices for the past 5 years but they have been getting worse. He has never been admitted to the hospital for psychiatry problems before. He is not currently on any psych medications. He denies any SI/HI. Patient states that he has had a history of HTN and only takes one medication but he does not remember the name of the medication. Patient complained of a sharp intermittent chest pain last night but stated that the pain has since passed. Patient has no complaints at this time, other than the voices in his head. Denies fevers, chills, nausea, vomiting, diarrhea, constipation, chest pain, abdominal pain, headache, blurry vision, numbness or tingling. PMH: HTN PSH: denies Family: Father - HTN Social: denies tobacco, alcohol or illicit drug use Allergies: NKDA Meds: 1 unknown medication for HTN: Patient states his pharmacy is [facility] in [place]? Present on Admission - Present on Admission Any Indicators Present on Admission: No Review of Systems - Review of Systems All systems: reviewed and no additional remarkable complaints except (as per HPI ) Past Patient History - Infectious Disease Hx of Infectious Diseases: None - Past Social History Smoking Status: Never Smoked - CARDIAC Hx Hypertension: Yes - PULMONARY Hx Tuberculosis: No - NEUROLOGICAL Hx Seizures: No - HEENT Hx HEENT Problems: No - RENAL Hx Chronic Kidney Disease: No - ENDOCRINE/METABOLIC Hx Endocrine Disorders: No - HEMATOLOGICAL/ONCOLOGICAL Hx Human Immunodeficiency Virus (HIV): No - INTEGUMENTARY Hx Dermatological Problems: No - MUSCULOSKELETAL/RHEUMATOLOGICAL Hx Musculoskeletal Disorders: No - GASTROINTESTINAL Hx Gastrointestinal Disorders: No - GENITOURINARY/GYNECOLOGICAL Hx Sexually Transmitted Disorders: No - PSYCHIATRIC Hx Substance Use: No - SURGICAL HISTORY Hx Surgeries: No - ANESTHESIA Hx Anesthesia: No Meds Allergies/Adverse Reactions: Allergies Allergy/AdvReac Type Severity Reaction Status Date / Time No Known Allergies Allergy Verified 04/13/17 17:00 Physical Exam - Constitutional Appears: Well, Non-toxic, No Acute Distress - Head Exam Head Exam: ATRAUMATIC, NORMOCEPHALIC - Eye Exam Eye Exam: EOMI, Normal appearance. absent: Scleral icterus - ENT Exam ENT Exam: Mucous Membranes Moist - Respiratory Exam Respiratory Exam: Clear to Auscultation Bilateral, NORMAL BREATHING PATTERN. absent: Accessory Muscle Use, Rales, Rhonchi, Wheezes, Respiratory Distress - Cardiovascular Exam Cardiovascular Exam: REGULAR RHYTHM, +S1, +S2. absent: JVD - GI/Abdominal Exam GI & Abdominal Exam: Normal Bowel Sounds, Soft. absent: Diminished Bowel Sounds , Distended, Firm, Guarding, Rigid, Tenderness - Extremities Exam Extremities exam: Positive for: pedal pulses present. Negative for: calf tenderness, pedal edema, tenderness - Neurological Exam Neurological exam: Alert, Oriented x3 - Psychiatric Exam Psychiatric exam: Normal Affect, Normal Mood - Skin Skin Exam: Dry, Warm Results - Vital Signs Recent Vital Signs: Last Vital Signs Temp 98.3 F 04/14/17 08:00 Pulse 52 L 04/14/17 11:19 Resp 17 04/14/17 12:13 BP 177/113 H 04/14/17 11:19 Pulse Ox 100 04/14/17 10:44 - Labs Result Diagrams: 04/13/17 20:57 04/13/17 20:57 Labs: Laboratory Results - last 24 hr 04/13/17 04/13/17 04/13/17 20:57 20:57 20:57 WBC 6.3 RBC 5.12 Hgb 14.7 Hct 43.6 MCV 85.2 MCH 28.7 MCHC 33.7 RDW 13.9 Plt Count 268 MPV 8.9 Neut % (Auto) 57.2 Lymph % (Auto) 28.3 Carver % (Auto) 10.9 H Eos % (Auto) 2.9 Baso % (Auto) 0.7 Neut # (Auto) 3.6 Lymph # (Auto) 1.8 Carver # (Auto) 0.7 Eos # (Auto) 0.2 Baso # (Auto) 0.0 Sodium 138 Potassium 3.9 Chloride 98 Carbon Dioxide 26 Anion Gap 19 BUN 14 Creatinine 0.9 Est GFR ( Amer) > 60 Est GFR (Non-Af Amer) > 60 Random Glucose 89 Calcium 8.7 Total Bilirubin 0.6 AST 24 ALT 43 Alkaline Phosphatase 60 Total Protein 7.6 Albumin 4.3 Globulin 3.4 Albumin/Globulin Ratio 1.3 Urine Color Yellow Urine Clarity Clear Urine pH 6.0 Ur Specific Bison 1.021 Urine Protein Negative Urine Glucose (UA) Normal Urine Ketones Negative Urine Blood Negative Urine Nitrate Negative Urine Bilirubin Negative Urine Urobilinogen Normal Ur Leukocyte Esterase Neg Urine WBC (Auto) 1 Urine RBC (Auto) 1 Ur Squamous Epith Cells < 1 Urine Bacteria Rare Urine Opiates Screen Urine Methadone Screen Ur Barbiturates Screen Ur Phencyclidine Scrn Ur Amphetamines Screen U Benzodiazepines Scrn U Oth Cocaine Metabols U Cannabinoids Screen Alcohol, Quantitative < 10 RPR 04/13/17 04/13/17 20:57 Unknown WBC RBC Hgb Hct MCV MCH MCHC RDW Plt Count MPV Neut % (Auto) Lymph % (Auto) Carver % (Auto) Eos % (Auto) Baso % (Auto) Neut # (Auto) Lymph # (Auto) Carver # (Auto) Eos # (Auto) Baso # (Auto) Sodium Potassium Chloride Carbon Dioxide Anion Gap BUN Creatinine Est GFR ( Amer) Est GFR (Non-Af Amer) Random Glucose Calcium Total Bilirubin AST ALT Alkaline Phosphatase Total Protein Albumin Globulin Albumin/Globulin Ratio Urine Color Urine Clarity Urine pH Ur Specific Bison Urine Protein Urine Glucose (UA) Urine Ketones Urine Blood Urine Nitrate Urine Bilirubin Urine Urobilinogen Ur Leukocyte Esterase Urine WBC (Auto) Urine RBC (Auto) Ur Squamous Epith Cells Urine Bacteria Urine Opiates Screen Negative Urine Methadone Screen Negative Ur Barbiturates Screen Negative Ur Phencyclidine Scrn Negative Ur Amphetamines Screen Negative U Benzodiazepines Scrn Negative U Oth Cocaine Metabols Negative U Cannabinoids Screen Negative Alcohol, Quantitative RPR Nonreactive Assessment & Plan - Assessment and Plan (Free Text) Plan: HTN Urgency Started on Amlodipine 10mg PO daily Started on HCTZ 12.5mg PO daily Clonidine 0.1mg PO q6h prn will continue to monitor Schizophrenia Management per primary team Benztropine 2mg PO q6h prn Benadryl 50mg PO q6h prn Haldol 5mg PO q8h prn Haldol 5mg PO BID Haldol 5mg IM q8h prn HCTZ 12.5mg PO daily Ativan 1mg PO q6h prn Trazodone 50mg PO HS prn Case discussed with Dr. Jan Carolina Yonathan PGY1 <Jaylan Montoya - Last Filed: 04/15/17 15:04> Results - Vital Signs Recent Vital Signs: Last Vital Signs Temp 98.2 F 04/15/17 06:13 Pulse 64 04/15/17 09:54 Resp 18 04/15/17 06:13 BP 117/80 04/15/17 09:54 Pulse Ox 100 04/14/17 10:44 - Labs Result Diagrams: 04/13/17 20:57 04/13/17 20:57 Attending/Attestation - Attestation I have personally seen and examined this patient.: Yes I have fully participated in the care of the patient.: Yes I have reviewed all pertinent clinical information: Yes Notes (Text): Patient was seen and examined No complain.He has history of hypertension. Discussed about importance of controlling blood pressure to prevent complication. Discussed with the resident. I agree with the resident's documentation of the assessment and the plan. 04/15/17 15:02
--- NOTE | 2017-04-15 07:04 | CP.PCM.PN ---
<Ge Mcmanus - Last Filed: 04/16/17 07:07> Subjective - Date & Time of Evaluation Date of Evaluation: 04/15/17 Time of Evaluation: 07:45 - Subjective Subjective: PGY1 Medicine Note for Dr. Montoya Patient seen and examined at bedside this morning. Patient was resting in his bed but states he did not sleep very well due to the voices. The patient reports that he has not had any headaches, blurred vision, double vision, lightheadedness, dizziness, nausea, vomiting, chest pain, palpitations, numbness or tingling. Patient has no complaints other than the voices in head at this time. Objective - Vital Signs/Intake and Output Vital Signs (last 24 hours): Temp Pulse Resp BP Pulse Ox 98.2 F 61 18 166/96 H 100 04/15/17 06:13 04/15/17 06:13 04/15/17 06:13 04/15/17 06:13 04/14/17 10:44 - Medications Medications: Current Medications Amlodipine Besylate (Norvasc) 10 mg PO DAILY [facility] Last Admin: 04/14/17 17:13 Dose: 10 mg Benztropine Mesylate (Cogentin) 2 mg PO Q6 PRN PRN Reason: Extra Pyramidal Symptoms Last Admin: 04/14/17 13:28 Dose: 2 mg Citalopram Hydrobromide (Celexa) 20 mg PO DAILY [facility] Clonidine HCl (Catapres) 0.1 mg PO Q6 PRN PRN Reason: Other Last Admin: 04/14/17 12:05 Dose: 0.1 mg Diphenhydramine HCl (Benadryl) 50 mg PO Q6 PRN PRN Reason: Extra Pyramidal Symptoms Haloperidol (Haldol) 5 mg PO Q8 PRN PRN Reason: Moderate Agitation Last Admin: 04/14/17 13:28 Dose: 5 mg Haloperidol (Haldol) 5 mg PO BID [facility] Last Admin: 04/14/17 17:13 Dose: 5 mg Haloperidol Lactate (Haldol) 5 mg IM Q8 PRN PRN Reason: Moderate Agitation Hydrochlorothiazide (Microzide) 12.5 mg PO DAILY [facility] Last Admin: 04/14/17 17:13 Dose: 12.5 mg Lorazepam (Ativan) 1 mg PO Q6 PRN PRN Reason: Anxiety Last Admin: 04/14/17 13:28 Dose: 1 mg Ondansetron HCl (Zofran Inj) 4 mg IVP Q6 PRN PRN Reason: Nausea/Vomiting Pneumococcal Polyvalent Vaccine (Pneumovax 23 Vaccine) 0.5 ml IM .ONCE ONE Stop: 04/17/17 10:01 Trazodone HCl (Desyrel) 50 mg PO HS PRN PRN Reason: Insomnia - Labs Labs: 04/13/17 20:57 04/13/17 20:57 - Constitutional Appears: Non-toxic, No Acute Distress - Head Exam Head Exam: ATRAUMATIC, NORMOCEPHALIC - Eye Exam Eye Exam: EOMI, Normal appearance - ENT Exam ENT Exam: Mucous Membranes Moist - Respiratory Exam Respiratory Exam: Clear to Ausculation Bilateral, NORMAL BREATHING PATTERN. absent: Accessory Muscle Use, Rales, Rhonchi, Wheezes, Respiratory Distress - Cardiovascular Exam Cardiovascular Exam: REGULAR RHYTHM, +S1, +S2 - GI/Abdominal Exam GI & Abdominal Exam: Soft, Normal Bowel Sounds. absent: Distended, Firm, Guarding, Rigid, Tenderness - Extremities Exam Extremities Exam: absent: Calf Tenderness, Pedal Edema - Neurological Exam Neurological Exam: Alert, Awake, Oriented x3 - Psychiatric Exam Psychiatric exam: Depressed (patient is upset that he is still hearing voices) - Skin Skin Exam: Dry, Warm Assessment and Plan - Assessment and Plan (Free Text) Plan: HTN Urgency Amlodipine 10mg PO daily HCTZ 12.5mg PO daily Clonidine 0.1mg PO q6h prn - given once for BP of 166/113 will continue to monitor Schizophrenia Management per primary team Benztropine 2mg PO q6h prn Benadryl 50mg PO q6h prn Haldol 5mg PO q8h prn Haldol 5mg PO BID Haldol 5mg IM q8h prn HCTZ 12.5mg PO daily Ativan 1mg PO q6h prn Trazodone 50mg PO HS prn Please continue current medication regiment for hypertension. Medicine team signing off. Please re-consult if needed. Case discussed with Dr. Jan Carolina Yonathan PGY1 <Jaylan Montoya - Last Filed: 04/18/17 11:34> Objective - Vital Signs/Intake and Output Vital Signs (last 24 hours): Temp Pulse Resp BP Pulse Ox 98.4 F 59 L 18 139/79 100 04/17/17 06:11 04/17/17 16:45 04/17/17 06:11 04/17/17 16:45 04/14/17 10:44 - Medications Medications: Current Medications Amlodipine Besylate (Norvasc) 10 mg PO DAILY [facility] Last Admin: 04/18/17 09:03 Dose: 10 mg Benztropine Mesylate (Cogentin) 2 mg PO Q6 PRN PRN Reason: Extra Pyramidal Symptoms Last Admin: 04/17/17 09:08 Dose: 2 mg Citalopram Hydrobromide (Celexa) 30 mg PO DAILY [facility] Last Admin: 04/18/17 09:03 Dose: 30 mg Clonidine HCl (Catapres) 0.1 mg PO Q6 PRN PRN Reason: Other Last Admin: 04/17/17 07:56 Dose: 0.1 mg Diphenhydramine HCl (Benadryl) 50 mg PO Q6 PRN PRN Reason: Extra Pyramidal Symptoms Haloperidol (Haldol) 5 mg PO Q8 PRN PRN Reason: Moderate Agitation Last Admin: 04/14/17 13:28 Dose: 5 mg Haloperidol (Haldol) 10 mg PO HS [facility] Last Admin: 04/17/17 21:46 Dose: 10 mg Haloperidol (Haldol) 5 mg PO DAILY [facility] Last Admin: 04/18/17 09:04 Dose: 5 mg Haloperidol Lactate (Haldol) 5 mg IM Q8 PRN PRN Reason: Moderate Agitation Hydrochlorothiazide (Microzide) 12.5 mg PO DAILY [facility] Last Admin: 04/18/17 09:04 Dose: 12.5 mg Lorazepam (Ativan) 1 mg PO Q6 PRN PRN Reason: Anxiety Last Admin: 04/17/17 07:55 Dose: 1 mg Ondansetron HCl (Zofran Inj) 4 mg IVP Q6 PRN PRN Reason: Nausea/Vomiting Trazodone HCl (Desyrel) 50 mg PO HS PRN PRN Reason: Insomnia - Labs Labs: 04/13/17 20:57 04/13/17 20:57 Attending/Attestation - Attestation I have personally seen and examined this patient.: Yes I have fully participated in the care of the patient.: Yes I have reviewed all pertinent clinical information, including history, physical exam and plan: Yes Notes (Text): Seen and examined Plan discussed with the patient I agree with the resident's documentation of the assessment and the plan
--- NOTE | 2017-04-15 09:54 | PCM.PYCHPN ---
Psychiatric Progress Note - Psychiatric Progress Note Patient seen today, length of contact: 15 min Patient Chief Complaint: I was hearing voices to kill myself.' Problems Identified/Issues Discussed: Patient seen and evaluated, chart reviewed and discussed with the nurse. Patient remained disorganized and internally preoccupied. He still reports of hearing voices. Patient still appears paranoid and delusional. He reports depressed mood and feelings of hopelessness and helplessness. Patient remained isolated, confined and withdrawn. Patient is compliant with medications and denies any side effects. Symptoms are improving but need more time to stabilize. Support and psychoeducation given. Medication Change: Yes Medical Record Reviewed: Yes Mental Status Examination - Cognitive Function Orientation: Person, Place, Situation, Time Memory: Intact Attention: WNL Concentration: Poor Association: Loose Fund of Knowledge: WNL - Mood Mood: Depressed, Anxious - Affect Affect: Constricted, Depressed - Speech Speech: Soft - Formal Thought Process Formal Thought Process: Hallucinations, Delusions, Paranoia, Loosening of associations - Suicidal Ideation Suicidal Ideation: No - Homicidal Ideation Homicidal Ideation: No Goal/Treatment Plan - Goal/Treatment Plan Need for Continued Stay: Severe depression anxiety, Severe functional impairment Progress Toward Problem(s) and Goals/Treatment Plan: Schizophrenia paranoid type continuous R/o Schizoaffective disorder bipolar type -CBT -Psychoeducation -Supportive therapy, group therapy, individual therapy -Haldol 5 mg by mouth twice a day -Celexa 20 mg PO Daily -Trazodone 50 mg by mouth daily at bedtime HTN: Continue prescribed medications - Smoking Cessation Smoking Cessation Initiated: No
--- NOTE | 2017-04-16 22:19 | CARD ---
APPROVED REPORT EKG Measurement Heart [id number] SD 160P-6 [id number] <Conclusion> Sinus bradycardia Voltage criteria for left ventricular hypertrophy Abnormal ECG
--- NOTE | 2017-04-16 23:28 | PCM.PYCHPN ---
Psychiatric Progress Note - Psychiatric Progress Note Patient seen today, length of contact: 15 min Patient Chief Complaint: I am still hearing voices.' Problems Identified/Issues Discussed: Patient seen and evaluated, chart reviewed and discussed with the nurse. As pee the staff, patient remained isolated, confined and withdrawn. He appears more organized and less internally preoccupied. He still reports of hearing voices. Patient still appears paranoid and delusional. He reports depressed mood but reports some improvement in his depression and anxiety. Patient is compliant with medications and denies any side effects. Symptoms are improving but need more time to stabilize. Aftercare discussed. Support and psychoeducation given. Medication Change: Yes (increase Haldol) Medical Record Reviewed: Yes Mental Status Examination - Cognitive Function Orientation: Person, Place, Situation, Time Memory: Intact Attention: WNL Concentration: Poor Association: Loose Fund of Knowledge: WNL - Mood Mood: Depressed, Anxious - Affect Affect: Constricted, Depressed - Speech Speech: Soft - Formal Thought Process Formal Thought Process: Hallucinations, Delusions, Paranoia, Loosening of associations - Suicidal Ideation Suicidal Ideation: No - Homicidal Ideation Homicidal Ideation: No Goal/Treatment Plan - Goal/Treatment Plan Need for Continued Stay: Severe depression anxiety, Severe functional impairment Progress Toward Problem(s) and Goals/Treatment Plan: Schizophrenia paranoid type continuous R/o Schizoaffective disorder bipolar type -CBT -Psychoeducation -Supportive therapy, group therapy, individual therapy -Haldol 5 mg by mouth daily -Haldol 10 mg PO QHS -Celexa 30 mg PO Daily -Cogentin 1 mg PO BID -Trazodone 50 mg by mouth daily at bedtime HTN: Continue prescribed medications - Smoking Cessation Smoking Cessation Initiated: No
[2017-04-17] MEDS ORDERED: Influenza Vaccine 60 mcg/0.5 mL SYR (4YR UP) IM ONE (10:00)
[2017-04-17] MEDS ORDERED: Pneumococcal 23-Valent Vaccine IM ONE (10:00)
[2017-04-19 05:55] VITALS: RESP 16; O2SAT 99
[2017-04-20 06:09] VITALS: TEMP 98.3
[2017-04-20 09:06] VITALS: PULSE 72
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
[2017-04-20 10:20] VITALS: BP 133/82
== END 2017-04-20 10:30 | disposition home or self-care (01) | DRG 430 ==
LOC: C.ER 16:36 → C.5E 04-14 10:43
PROVIDERS: ADMIT Psychiatry & Neurology Psychiatry; ATTEND Psychiatry & Neurology Psychiatry
PROC: GZHZZZZ Group Psychotherapy (ICD-10-PCS; principal; 2017-04-14)
PROC: GZ58ZZZ Individual Psychotherapy, Cognitive-Behavioral (ICD-10-PCS; 2017-04-14)
PROC: GZ56ZZZ Individual Psychotherapy, Supportive (ICD-10-PCS; 2017-04-14)
DX: F20.0 Paranoid schizophrenia (principal); I10 Essential (primary) hypertension; I16.0 Hypertensive urgency

== ENCOUNTER 2017-08-15 20:34 | Emergency (ER) | payer OTHER ==
[2017-08-15 20:34] VITALS: BMI 23.6
--- NOTE | 2017-08-15 21:30 | C.PDOC ---
History Of Present Illness 52 year old male with PMHx of HTN presents to the ED c/o dizziness. Patient reports he has not followed up with a Doctor in a while and has not come to the clinic to follow up. Patient reports he usually comes to the ED to ask for his HTN medications. Patient denies fever, chills, headache, SOB, CP, nausea, vomit , diarrhea. Chief Complaint (Nursing): Dizziness/Lightheaded History Per: Patient History/Exam Limitations: no limitations Onset/Duration Of Symptoms: Days Current Symptoms Are (Timing): Still Present Activity At Onset Of Symptoms: Standing Associated Symptoms Preceding Syncopal Episode: Lightheadedness Seizure Or Post-ictal Symptoms: None Possible Causative Factor(s): Other (no HTN meds taken) Fall Associated With With Symptoms: No Severity: None Recent travel outside of the [place]: No Additional History Per: Patient Past Medical History Reviewed: Historical Data, Nursing Documentation, Vital Signs Vital Signs: Last Vital Signs Temp 97.9 F 08/15/17 23:26 Pulse 86 08/15/17 23:26 Resp 18 08/15/17 23:26 BP 179/83 H 08/15/17 23:26 Pulse Ox 98 08/15/17 23:30 - Medical History PMH: HTN, Schizophrenia Denies: Anxiety, Depression, Diabetes, Hepatitis, HIV, Chronic Kidney Disease , Seizures, Sexually Transmitted Disease Surgical History: No Surg Hx - [facility] Procedures GROUP PSYCHOTHERAPY (04/14/17) INDIVIDUAL PSYCHOTHERAPY, COGNITIVE-BEHAVIORAL (04/14/17) INDIVIDUAL PSYCHOTHERAPY, SUPPORTIVE (04/14/17) Family History: States: Unknown Family Hx - Social History Hx Tobacco Use: No Hx Alcohol Use: No Hx Substance Use: No - Immunization History Hx Tetanus Toxoid Vaccination: No Hx Influenza Vaccination: No Hx Pneumococcal Vaccination: No Review Of Systems Constitutional: Negative for: Fever, Chills Eyes: Negative for: Vision Change Cardiovascular: Negative for: Chest Pain, Palpitations Respiratory: Negative for: Cough, Shortness of Breath Gastrointestinal: Negative for: Nausea, Vomiting Skin: Negative for: Rash Neurological: Positive for: Dizziness. Negative for: Weakness, Numbness, Headache Physical Exam - Physical Exam Appears: Non-toxic, No Acute Distress Skin: Normal Color, Warm, Dry Head: Atraumatic, Normacephalic Eye(s): bilateral: Normal Inspection Oral Mucosa: Moist Neck: Normal ROM, Supple Chest: Symmetrical Cardiovascular: Rhythm Regular Respiratory: Normal Breath Sounds, No Rales, No Rhonchi, No Wheezing Gastrointestinal/Abdominal: Soft, No Tenderness, No Guarding, No Rebound Extremity: Normal ROM, No Tenderness, No Swelling Neurological/Psych: Oriented x3, Normal Speech Gait: Steady ED Course And Treatment - Laboratory Results Result Diagrams: 08/15/17 21:40 08/15/17 21:40 ECG: Interpreted By Me, Viewed By Me ECG Rhythm: Sinus Rhythm Interpretation Of ECG: Voltage criteria for LVH Rate From EC (BPM) O2 Sat by Pulse Oximetry: 98 (ON RA) Pulse Ox Interpretation: Normal - CT Scan/US CT head Other Rad Studies (CT/US): Read By Radiologist, Radiology Report Reviewed CT/US Interpretation: EXAM: CT Head Without Intravenous Contrast. CLINICAL HISTORY: 52 years old, male; Signs and symptoms; Dizziness. TECHNIQUE: Axial computed tomography images of the head/brain without intravenous contrast. All CT scans at this facility use at least one of these dose optimization techniques : automated. exposure control; mA and/or kV adjustment per patient size ( includes targeted exams where dose is. matched to clinical indication); or iterative reconstruction. Coronal and sagittal reformatted images. were created and reviewed. COMPARISON: CT - HEAD W/O CONTRAST 2015-05-01 03:05. FINDINGS: Brain: Mild small vessel ischemic/degenerative changes. No hemorrhage. Ventricles: Unremarkable. No ventriculomegaly. Bones/joints: Unremarkable. No acute fracture. Soft tissues: Unremarkable. Sinuses: Unremarkable as visualized. No acute sinusitis. Mastoid air cells: Unremarkable as visualized. No mastoid effusion. IMPRESSION: Mild small vessel ischemic/degenerative changes. Thank you for allowing us to participate in the care of your patient. Dictated and Authenticated by: Claude Levine MD. 08/15/2017 10:33 PM Eastern Time ([place] & [place]) Medical Decision Making Medical Decision Making: Impression: dizziness, missed HTN meds Plan: * EKG * Labs * CXR * UA * Apresoline 10 mg IVP Labs showed mildly elavted serum glucose. Patient's BP improved while in the ED , was given prescriptions for HTN medications and a referral for follow up with clinic. Disposition - Disposition Referrals: [facility] [Outside] Disposition: HOME/ ROUTINE Disposition Time: 06:26 Condition: FAIR Prescriptions: Amlodipine/Valsartan [Amlodipine-Valsartan 10-160 mg] 1 each PO DAILY #14 tablet Instructions: High Blood Pressure in Adults, Low Salt Diet Forms: [facility] [facility] (Welsh) Print Language: AMHARIC - Clinical Impression Clinical Impression: Hypertension - Scribe Statement The provider has reviewed the documentation as recorded by the Scribe Dylon Castro All medical record entries made by the Scribe were at my direction and personally dictated by me. I have reviewed the chart and agree that the record accurately reflects my personal performance of the history, physical exam, medical decision making, and the department course for this patient. I have also personally directed, reviewed, and agree with the discharge instructions and disposition.
[2017-08-15 21:44] LABS: BASO % 0.6 % (0.0-2.0); EOS # 0.2 K/uL (0.0-0.7); EOS % 2.7 % (0.0-4.0); HEMOGLOBIN 14.3 g/dL (12.0-18.0); LYMPH # 1.6 K/uL (1.0-4.3); LYMPH % 26.5 % (20.0-40.0); MEAN CELL VOLUME 85.5 fL (80.0-94.0); MEAN CORPUSCULAR HGB CONC 33.9 g/dL (33.0-37.0); MEAN PLATELET VOLUME 9.5 fL (7.2-11.7); MONO # 0.6 K/uL (0.0-0.8); MONO % 9.5 % (0.0-10.0); NEUT # 3.8 K/uL (1.8-7.0); NEUT % 60.7 % (50.0-75.0); RBC 4.93 Mil/uL (4.40-5.90); RED CELL DISTRIBUTION WIDTH 13.5 % (11.5-14.5); WHITE BLOOD COUNT 6.2 K/uL (4.8-10.8)
[2017-08-15 22:03] LABS: URINE BACTERIA RARE (<OCC); URINE BILIRUBIN NEGATIVE (NEGATIVE); URINE BLOOD NEGATIVE (NEGATIVE); URINE CLARITY Clear (Clear); URINE COLOR Yellow (YELLOW); URINE GLUCOSE (UA) 2+ mg/dL (Normal); URINE LEUKOCYTE ESTERASE NEG Leu/uL (Negative); URINE PROTEIN NEGATIVE (NEGATIVE); URINE UROBILINOGEN NORMAL mg/dL (0.2-1.0)
[2017-08-15 22:03] LABS: ALB/GLOB RATIO 1.5 (1.0-2.1); ALBUMIN 4.3 g/dL (3.5-5.0); ALT/SGPT 51 U/L (21-72); AST/SGOT 30 U/L (17-59); BLOOD UREA NITROGEN 18 mg/dL (9-20); CALCIUM 8.5 mg/dl (8.6-10.4); GFR AFRICAN-AMERICAN > 60; GFR NON-AFRICAN AMERICAN > 60
[2017-08-15 22:15] LABS: B-TYPE NATRIURETIC PEPTIDE 270 pg/mL (0-900)
[2017-08-15 22:35] VITALS: O2SAT 98
[2017-08-15 23:27] VITALS: BP 179/83; PULSE 86; RESP 18; TEMP 97.9
--- NOTE | 2017-08-16 09:07 | CT ---
PROCEDURE: CT HEAD WITHOUT CONTRAST. HISTORY: dizziness COMPARISON: CT scan brain dated 04/13/2017. TECHNIQUE: Axial computed tomography images were obtained through the head/brain without intravenous contrast. Radiation dose: Total exam DLP = 879.0 mGy-cm. This CT exam was performed using one or more of the following dose reduction techniques: Automated exposure control, adjustment of the mA and/or kV according to patient size, and/or use of iterative reconstruction technique. FINDINGS: HEMORRHAGE: No intracranial hemorrhage. BRAIN: There are now mild deep and subcortical white matter low-attenuation changes scattered about both cerebral hemispheres most likely representing chronic sequela of small vessel disease. Note that the possibility of a small hyperacute infarct cannot be excluded and there is any concern, recommend followup MRI.. VENTRICLES: No obstructive hydrocephalus. CALVARIUM: Unremarkable. PARANASAL SINUSES: Unremarkable as visualized. No significant inflammatory changes. MASTOID AIR CELLS: Unremarkable as visualized. No inflammatory changes. OTHER FINDINGS: None. IMPRESSION: Chronic deep and subcortical white matter ischemic changes. There also appear to be a few scattered chronic bilateral basal nuclei lacunar type infarcts. Note that the possibility of a small hyperacute infarct cannot be excluded and there is any concern, recommend followup MRI..
--- NOTE | 2017-08-16 09:37 | RAD ---
PROCEDURE: CHEST RADIOGRAPH, 1 VIEW HISTORY: chest pain COMPARISON: Comparison chest 04/13/2017 FINDINGS: LUNGS: Poor inspiration with low lung volumes, crowded bronchovascular markings and mild bibasilar atelectasis PLEURA: No pneumothorax or pleural fluid seen. CARDIOVASCULAR: Cardiomegaly OSSEOUS STRUCTURES: No significant abnormalities. VISUALIZED UPPER ABDOMEN: Normal. OTHER FINDINGS: None. IMPRESSION: Poor inspiration with low lung volumes, crowded bronchovascular markings and mild bibasilar atelectasis Cardiomegaly
--- NOTE | 2017-08-17 23:18 | CARD ---
APPROVED REPORT EKG Measurement Heart [id number] OK [id number] <Conclusion> Normal sinus rhythm Voltage criteria for left ventricular hypertrophy Abnormal ECG
== END 2017-08-15 23:28 | disposition home or self-care (01) ==
LOC: C.ER 20:34
DX: I10 Essential (primary) hypertension (principal); F20.9 Schizophrenia, unspecified
CPT/HCPCS: 70450; 71045; 80053; 81001; 83880; 84484; 85025; 96374; 99285; J0360

== ENCOUNTER 2017-11-12 14:02 | Emergency (ER) | payer OTHER ==
[2017-11-12 14:03] VITALS: BMI 23.6
[2017-11-12 14:17] VITALS: O2SAT 97
[2017-11-12 15:03] LABS: SQUAMOUS EPITHIAL < 1 /hpf (0-5); URINE BILIRUBIN NEGATIVE (NEGATIVE); URINE BLOOD NEGATIVE (NEGATIVE); URINE CLARITY Clear (Clear); URINE COLOR Yellow (YELLOW); URINE GLUCOSE (UA) NORMAL (Normal); URINE LEUKOCYTE ESTERASE NEG Leu/uL (Negative); URINE PROTEIN NEGATIVE (NEGATIVE); URINE UROBILINOGEN NORMAL mg/dL (0.2-1.0)
--- NOTE | 2017-11-12 15:36 | C.PDOC ---
History Of Present Illness 52 year old male with history of Schizophrenia presents to the ED requesting blood pressure medication because he ran out. Reports he was not aware he could visit a pharmacy/clinic for refills. Notes occasional posterior scrotal discomfort, no symptoms present during visit to the ED. Denies fever, nausea, vomiting, and any other associated symptoms. Time Seen by Provider: 11/12/17 15:11 Chief Complaint (Nursing): Male Genitourinary History Per: Patient History/Exam Limitations: no limitations Current Symptoms Are (Timing): Gone Past Medical History Reviewed: Historical Data, Nursing Documentation, Vital Signs Vital Signs: Last Vital Signs Temp 98.7 F 11/12/17 14:15 Pulse 64 11/12/17 14:15 Resp 16 11/12/17 14:15 BP 182/124 H 11/12/17 14:15 Pulse Ox 97 11/12/17 14:15 - Medical History PMH: HTN, Schizophrenia Denies: Anxiety, Depression, Diabetes, Hepatitis, HIV, Chronic Kidney Disease, Seizures, Sexually Transmitted Disease - [facility] Procedures GROUP PSYCHOTHERAPY (04/14/17) INDIVIDUAL PSYCHOTHERAPY, COGNITIVE-BEHAVIORAL (04/14/17) INDIVIDUAL PSYCHOTHERAPY, SUPPORTIVE (04/14/17) Family History: States: Unknown Family Hx - Social History Hx Tobacco Use: No Hx Alcohol Use: No Hx Substance Use: No - Immunization History Hx Tetanus Toxoid Vaccination: No Hx Influenza Vaccination: No Hx Pneumococcal Vaccination: No Review Of Systems Except As Marked, All Systems Reviewed And Found Negative. Constitutional: Negative for: Fever, Chills Gastrointestinal: Negative for: Nausea, Vomiting Genitourinary: Negative for: Scrotal Pain Physical Exam - Physical Exam Appears: Non-toxic Skin: Normal Color, Warm, Dry Head: Atraumatic, Normacephalic Eye(s): bilateral: Normal Inspection Oral Mucosa: Moist Neck: Normal ROM Chest: Symmetrical, No Deformity Respiratory: Other (no acute distress) Gastrointestinal/Abdominal: Normal Exam, Soft Male Genital: Normal Inspection, No Scrotal Swelling Extremity: Normal ROM (x4) Neurological/Psych: Oriented x3, Normal Speech Gait: Steady ED Course And Treatment O2 Sat by Pulse Oximetry: 97 (RA) Pulse Ox Interpretation: Normal Medical Decision Making Medical Decision Making: Plan: --Urinalysis --Given Norvasc. Progress/Update: Patient stable for discharge home. occasional posterior scrotal discomfort "but not today" h/o schizophrenia may make accurate complaint difficult normal scrotal/lower abd/hernia eval UA neg. no acute perineal issues. opt f/u as needed Uncontrolled HTN, ran out of Amlodipine 10 mg daily first dose and refill given instructed to f/u in Clinic. Disposition Doctor Will See Patient In The: Office Counseled Patient/Family Regarding: Studies Performed, Diagnosis - Disposition Referrals: [facility] [Outside] [facility] [Outside] [facility] [Outside] [facility] [Outside] Disposition: HOME/ ROUTINE Disposition Time: 15:36 Condition: GOOD Additional Instructions: sigue andrea medicamento para la pression natalia diario Sigue en la Clinica familiar (gratis) para seguir maryjo evaluacion'es y rellenos Lllama para hacer flaquita Prescriptions: Amlodipine/Valsartan [Amlodipine-Valsartan 5-160 mg] 1 each PO DAILY #30 tablet Instructions: High Blood Pressure in Adults Forms: [facility] (Romanian) Print Language: MALAGASY - Clinical Impression Clinical Impression: Male perineal pain, Medication refill, Hypertension - Scribe Statement The provider has reviewed the documentation as recorded by the Scribe (Migdalia escobar) Provider Attestation: All medical record entries made by the Scribe were at my direction and personally dictated by me. I have reviewed the chart and agree that the record accurately reflects my personal performance of the history, physical exam, medical decision making, and the department course for this patient. I have also personally directed, reviewed, and agree with the discharge instructions and disposition.
[2017-11-12 16:32] VITALS: BP 184/101; PULSE 59; RESP 18; TEMP 99
== END 2017-11-12 16:31 | disposition home or self-care (01) ==
LOC: C.ER 14:02
DX: Z76.0 Encounter for issue of repeat prescription (principal); I10 Essential (primary) hypertension; R10.2 Pelvic and perineal pain; F20.9 Schizophrenia, unspecified

== ENCOUNTER 2018-03-05 14:09 | Emergency (ER) | payer MEDICAID, OTHER ==
[2018-03-05 14:40] VITALS: BMI 25.8
[2018-03-05 14:42] VITALS: TEMP 98.4
--- NOTE | 2018-03-05 16:08 | C.PDOC ---
History Of Present Illness 53 year old male, otherwise well, presents to the ED complaining of pain to his right hip/buttocks radiating down the leg for the past 3 weeks. He denies any trauma or fall. Patient denies any extremity weakness, numbness, or urinary symptoms. Time Seen by Provider: 03/05/18 14:55 Chief Complaint (Nursing): Lower Extremity Problem/Injury History Per: Patient History/Exam Limitations: no limitations Onset/Duration Of Symptoms: Days Current Symptoms Are (Timing): Still Present Past Medical History Reviewed: Historical Data, Nursing Documentation, Vital Signs Vital Signs: Last Vital Signs Temp 98.4 F 03/05/18 14:40 Pulse 72 03/05/18 14:40 Resp 18 03/05/18 14:40 BP 165/90 H 03/05/18 14:40 Pulse Ox 99 03/05/18 14:40 - Medical History PMH: HTN (denies), Schizophrenia Denies: Anxiety, Depression, Diabetes, Hepatitis, HIV, Chronic Kidney Disease, Seizures, Sexually Transmitted Disease - [facility] Procedures GROUP PSYCHOTHERAPY (04/14/17) INDIVIDUAL PSYCHOTHERAPY, COGNITIVE-BEHAVIORAL (04/14/17) INDIVIDUAL PSYCHOTHERAPY, SUPPORTIVE (04/14/17) Family History: States: Unknown Family Hx - Social History Hx Tobacco Use: No Hx Alcohol Use: No Hx Substance Use: No - Immunization History Hx Tetanus Toxoid Vaccination: No Hx Influenza Vaccination: No Hx Pneumococcal Vaccination: No Review Of Systems Except As Marked, All Systems Reviewed And Found Negative. Constitutional: Negative for: Fever Cardiovascular: Negative for: Chest Pain Respiratory: Negative for: Shortness of Breath Gastrointestinal: Negative for: Abdominal Pain Genitourinary: Negative for: Dysuria, Hematuria Musculoskeletal: Positive for: Back Pain (right lower back), Leg Pain (right hip radiating down) Skin: Negative for: Rash Neurological: Negative for: Weakness, Numbness, Incoordination Physical Exam - Physical Exam Appears: Well, Non-toxic, No Acute Distress Skin: Warm, Dry Head: Atraumatic, Normacephalic Eye(s): bilateral: Normal Inspection Neck: Normal ROM Chest: Symmetrical Respiratory: No Accessory Muscle Use, Other (Normal inspiratory effort) Back: Normal Inspection Extremity: Normal ROM, Tenderness (mild tenderness to right buttock), Capillary Refill (< 2 sec), No Deformity, No Swelling Pulses: Left Dorsalis Pedis: Normal, Right Dorsalis Pedis: Normal Neurological/Psych: Oriented x3, Normal Motor, Normal Sensation Gait: Steady ED Course And Treatment O2 Sat by Pulse Oximetry: 99 (RA) Pulse Ox Interpretation: Normal Medical Decision Making Medical Decision Making: Impression: Sciatica Plan: --Motrin 600 mg PO --Tylenol 975 mg PO --Prednisone 20 mg PO 16:08 Patient reports improvement in pain and feels comfortable going home. Disposition Counseled Patient/Family Regarding: Diagnosis, Need For Followup, Rx Given - Disposition Referrals: [facility] [Outside] Disposition: HOME/ ROUTINE Disposition Time: 16:08 Condition: STABLE Prescriptions: diaZEpam [Valium] 5 mg PO TID #12 tab Ibuprofen [Motrin] 600 mg PO TID #15 tab Instructions: Sciatica (DC) Forms: [facility] (Thai), General Discharge Instructions - POA Present On Arrival: None - Clinical Impression Clinical Impression: Sciatica - Scribe Statement The provider has reviewed the documentation as recorded by the Trevon Escamilla Provider Attestation: All medical record entries made by the Trevon were at my direction and personally dictated by me. I have reviewed the chart and agree that the record accurately reflects my personal performance of the history, physical exam, medical decision making, and the department course for this patient. I have also personally directed, reviewed, and agree with the discharge instructions and disposition.
[2018-03-05 16:19] VITALS: BP 176/94; PULSE 81; RESP 16
[2018-03-05 16:20] VITALS: O2SAT 99
== END 2018-03-05 16:18 | disposition home or self-care (01) ==
LOC: C.ER 14:09
DX: M54.30 Sciatica, unspecified side (principal); F20.9 Schizophrenia, unspecified

== ENCOUNTER 2018-06-19 19:05 | Emergency (ER) | payer MEDICAID, OTHER ==
[2018-06-19 19:06] VITALS: BMI 27.2
[2018-06-19 19:22] VITALS: BP 172/97; PULSE 71; TEMP 98.9; O2SAT 98
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
[2018-06-19 21:12] VITALS: RESP 20
== END 2018-06-19 21:11 | disposition home or self-care (01) ==
LOC: C.ER 19:05
DX: M54.89 Other dorsalgia (principal); I10 Essential (primary) hypertension; Z76.0 Encounter for issue of repeat prescription